=== PATIENT | female | born 1995 | race Hispanic/Latino ===

== ENCOUNTER 2020-01-23 23:25 | Emergency (ER) | payer SELFPAY ==
[~2020-01-23] VITALS: Ht 154.9 cm; Wt 57.2 kg
--- OUTSIDE RECORDS SUMMARY | 2020-01-23 23:28 | XMS REPORT ---
Author [facility] Address Unknown Phone Unavailable Care Team Providers Care Hosiery Looper Name Role Phone Unavailable Unavailable Payers Payer Name Policy Type Policy Number Effective Date Expiration Date Problems This patient has no known problems. Allergies, Adverse Reactions, Alerts Allergy Name Allergy Type Status Severity Reaction(s) Onset Date Inactive Date Treating Clinician Comments No Known Allergies DA Active U 2016-11-22 00:00:00 Medications This patient has no known medications. Results Test Description Test Time Test Comments Text Results Atomic Results Result Comments SURGICAL SPECIMENS 2018-06-08 07:57:00 RUN DATE: 06/08/18 [facility] *LIVE* PAGE 1 RUN TIME: 0757 Specimen Inquiry RUN USER: INTERFACE PATIENT: WUAMY LOC: TOMMY U #: [id number] AGE/SX: 22/F [place] [facility] [place]06[place]18REG DR: Jose Luis Hahn MD : 97 BED: 1 DIS: 06/05/18 STATUS: DIS IN TLOC: SPEC #: [id number] RECD: 06/02/18 STATUS: LACEY REMaria Teresa #: [id number] SAMUEL: 06/02/18 [facility] DR: Jose Luis Hahn MD ENTERED: 06/08/18 SP TYPE: SURG SPEC OTHR DR: Harjit Reyes JR, MD ORDERED: LEVEL 4 CODES: [id number] - PLACENTA, NOS COPIES TO: Harjit Reyes JR, MD [address] [address] Jose Luis Hahn MD [address] [place], [place] [phone] PROCEDURES: LEVEL 4 (Incomplete) TISSUES: 1. PLACENTA, NOS - Placenta, 3rd trimester. FINAL DIAGNOSIS Placenta: - Third trimester placenta with acute chorionitis, deciduitis, infarcts; maternal surface shows blood clot (consistent with clinical impression of abruption); 519 g (expected mean 499 g). - Trivascular umbilical cord with mild acute vasculitis. GROSS AND MICROSCOPIC GROSS DESCRIPTION: Received in formalin and labeled "Placenta" is a 17 x 17 x 3.4 cm placenta. The trivascular umbilical cord measures 24 cm in length, 1.5 cm in diameter, arising 4 cm from the nearest margin. The membranes attach marginally and are focally cloudy. The placenta is 519 g after removal of the membranes and cord. The surface is ruiz-blue, with good visibility of underlying vessels. The maternal surface is red-brown, with attached blood clot. The parenchyma shows 2 dash-white nodules measure up to 1.7 cm. The rest of the parenchyma is spongy and contains no lesions. Section code: (A) - cord, midportion and the end (cut); (B) membranes and cord at placental end; (C-D) - guest services representative sections of placenta; (E)-cross sections of the cord. CONTINUED ON NEXT PAGE RUN DATE: 06/08/18 [facility] *LIVE* PAGE 2 RUN TIME: 756 Specimen Inquiry RUN USER: INTERFACE SPEC #: [id number] PATIENT: AMY WU #[id number] (Continued) GROSS AND MICROSCOPIC (Continued) MICROSCOPIC EXAMINATION: The trivascular umbilical cord contains acute inflammatory cells within vessel napier. The membranes have acute inflammatory cells within the chorion. The villi are predominantly small, with decreased cellularity and prominent vasculature. The infarcts show coagulative necrosis. POST-OP DIAGNOSIS Delivered PRE-OP DIAGNOSIS , B+, primary , abruption Signed SIGNATURE ON FILE MattaRoxannefederica ELLSWORTH 06/08/18 0757 END OF REPORT
--- OUTSIDE RECORDS SUMMARY | 2020-01-23 23:28 | XMS REPORT ---
Author Author Admin, [place] [facility] Address [address] [place] [id number] Phone Allergies, Adverse Reactions, Alerts Allergy Name Reaction Description Start Date Severity Status Provider No Known Allergies Radha Garcia Conditions or Problems Problem Name Problem Code Onset Date Status Entry Date Provider Comment Standard Description Annotate Contraception counseling V25.09 Active Veronica Bishop MD Encounter for other general counseling and advice on contraceptive management Medication List Medication Instructions Start Date Stop Date Generic Name NDC Status Provider Patient Instruction No Drug Therapy Prescribed - none known did ask Veronica Bishop MD Vital Signs Date Name Value Unit Range Description blood pressure, diastolic 62 mm[Hg] BP crocker blood pressure, systolic 105 mm[Hg] BP sys height E&M 60 [in_us] Bdy height pulse rate E&M 78 /min Heart rate respiratory rate E&M 16 /min Resp rate temperature E&M 97.6 [degF] Body temperature weight E&M 162.38 [lb_av] Weight Measured Encounters Date Encounter Provider Code Facility 11:30:52 CDT New Patient Problem Focus - [id number] Veronica Bishop MD [id number] [facility] OB
[2020-01-23] MEDS ORDERED: ASPIRIN 81 MG CHEW TAB PO ONE (23:45)
[2020-01-23 23:49] LABS: BASOPHILS % 0.3 % (0.0-1.0); EOSINOPHILS # (AUTO) 0.3 (0.0-0.4); HEMATOCRIT 38.1 % (34.2-44.1); HEMOGLOBIN 12.6 g/dL (12.0-16.0); LYMPHOCYTES # (AUTO) 3.9 (1.0-3.2); LYMPHOCYTES % 33.7 % (18.0-39.1); MEAN CORPUSCULAR HEMOGLOBIN 28.4 pg (28-32); MEAN CORPUSCULAR HGB CONC 33.1 g/dL (31-35); MEAN CORPUSCULAR VOLUME 85.8 fL (81-99); MONOCYTES # (AUTO) 1.1 (0.2-0.8); MONOCYTES % 9.9 % (4.4-11.3); NEUTROPHILS # (AUTO) 6.1 (2.1-6.9); NEUTROPHILS % 52.8 % (38.7-80.0); PLATELET COUNT 298 x10e3/uL (140-360); RED BLOOD COUNT 4.44 x10e6/uL (3.6-5.1); RED CELL DISTRIBUTION WIDTH 13.3 % (11.7-14.4)
[2020-01-24 00:06] LABS: ALANINE AMINOTRANSFERASE 20 IU/L (0-55); ALBUMIN 4.1 g/dL (3.5-5.0); ALBUMIN/GLOBULIN RATIO 1.5 (0.8-2.0); ALKALINE PHOSPHATASE 123 IU/L (40-150); ANION GAP 11.4 mmol/L (8-16); BLOOD UREA NITROGEN 8 mg/dL (7-26); BUN/CREATININE RATIO 11 (6-25); CALCIUM 9.5 mg/dL (8.4-10.2); CARBON DIOXIDE 25 mmol/L (22-29); CHLORIDE 109 mmol/L (98-107); CREATINE KINASE 185 IU/L (29-168); CREATININE, SERUM 0.75 mg/dL (0.57-1.11); EST GLOMERULAR FILTRATION RATE > 60 ML/MIN (60-); GLUCOSE 96 mg/dL (74-118); POTASSIUM 3.4 mmol/L (3.5-5.1); SODIUM 142 mmol/L (136-145)
--- NOTE | 2020-01-24 00:18 | Diagnostic Imaging Report ---
CT BRAIN WO HISTORY: Trauma COMPARISON: None. TECHNIQUE: Noncontrast axial scans were obtained from skull base to the vertex. Coronal and sagittal reconstructions obtained from the axial data. One or more of the following dose reduction techniques were used: Automated exposure control, adjustment of the mA and/or kV according to patient size, and/or utilization of iterative reconstruction technique. DISCUSSION: Scalp/Skull: Small left frontal scalp hematoma. No calvarial fracture. Brain sulci: Appropriate for patient's age. Ventricles: Normal in size and configuration. No hydrocephalus. Extra-axial spaces: No masses or fluid collections. Parenchyma: No abnormal densities. No mass, hemorrhage, or large vascular territory acute infarct. Dural sinuses: No abnormal densities. Sellar/Suprasellar region: Intact. Skull base: Intact. Incidental findings: None. IMPRESSION: No intracranial abnormalities. Signed by: Dr. Alireza Viramontes M.D. on 01/24/2020 12:15 AM
--- NOTE | 2020-01-24 00:23 | Diagnostic Imaging Report ---
CT MAXIO FAC/PARANAS WO HISTORY: Trauma COMPARISON: Concurrent head CT TECHNIQUE: Axial CT images through the face were obtained without contrast. Coronal/sagittal reformations were created. One or more of the following dose reduction techniques were used: Automated exposure control, adjustment of the mA and/or kV according to patient size, and/or utilization of iterative reconstruction technique. DISCUSSION: Small left frontal scalp hematoma is associated with mild left periorbital subcutaneous edema. No acute fracture is seen. No destructive osseous lesions are seen. The orbits are intact. Intraorbital contents are grossly unremarkable. The paranasal sinuses are clear. The palatine and lingual tonsils are prominent. IMPRESSION: No acute osseous abnormalities in the face. Signed by: Dr. Alireza Viramontes M.D. on 01/24/2020 12:19 AM
[2020-01-24 00:55] LABS: CLARITY,URINE CLEAR (CLEAR); COLOR,URINE YELLOW (YELLOW); LEUKOCYTE ESTERASE ,URINE NEGATIVE (NEGATIVE); NITRITE,URINE NEGATIVE (NEGATIVE)
[2020-01-24 00:56] LABS: BILIRUBIN,URINE NEGATIVE (NEGATIVE); KETONES,URINE 1+ (NEGATIVE); PREGNANCY TEST, URINE NEGATIVE (NEGATIVE); PROTEIN,URINE DIPSTICK NEGATIVE (NEGATIVE); URINE UROBILINOGEN 0.2 mg/dL (0.2 - 1)
[2020-01-24 01:01] LABS: WBC,URINE (MAN) 0-5 /HPF (0-5)
[2020-01-24 01:02] LABS: BACTERIA,URINE FEW /HPF; EPITHELIAL CELLS,URINE FEW /LPF; RBC,URINE 0-5 /HPF (0-5); TRANSITIONAL EPI CELLS,URINE FEW
[2020-01-24 01:29] VITALS: BP 127/71
== END 2020-01-24 01:39 | disposition home or self-care (01) ==
LOC: ER 23:25
DX: R55 Syncope and collapse (principal); S00.83XA Contusion of other part of head, initial encounter; S00.33XA Contusion of nose, initial encounter; W01.0XXA Fall on same level from slipping, tripping and stumbling without subsequent striking against object, initial encounter; Y92.89 Other specified places as the place of occurrence of the external cause
CPT/HCPCS: 36415; 70450; 70486; 80053; 81001; 81025; 82550; 82553; 84484; 85025; 93005; 99284